=== PATIENT | male | born 1955 | race African-American/Black ===

== ENCOUNTER → 2021-12-14 09:50 | Outpatient (CLI) | payer MEDICARE, SELFPAY ==
--- NOTE | 2021-12-14 09:50 | US_ITS ---
FINAL REPORT CLINICAL HISTORY: Gallstones seen on CT FINDINGS: ULTRASOUND RIGHT UPPER QUADRANT Sonographic imaging of the right upper quadrant was obtained. The pancreas is partially obscured. There are multitude of hepatic cysts measuring up to 9.2 cm in greatest diameter. On the decubitus images the gallbladder is visualized and multiple gallstones are seen. The gallbladder lies adjacent to several of the hepatic cysts. There is no biliary ductal dilatation. The common duct is normal at 4 mm. Limited images of the right kidney demonstrates a 1.5 cm cyst. IMPRESSION: Multiple hepatic cysts. Multiple gallstones in the gallbladder. Right renal cyst. Reviewed, Interpreted and Dictated by Jai Plata MD Transcribed by Jovita Quintana Authenticated by Jai Plata MD on 12/14/2021 12:53:45 PM [facility]
== END ==
PROVIDERS: PCP Family Medicine; Visit Provider Surgery
DX: K80.20 Calculus of gallbladder without cholecystitis without obstruction (principal)
CPT/HCPCS: 76705

== ENCOUNTER → 2022-01-12 08:08 | Outpatient (CLI) | payer MEDICARE, SELFPAY ==
[2022-01-12 09:02] LABS: Basophils # 0.1 K/mm3 (0-0.2); Basophils % 1.8 % (0.1-2.0); Eosinophils # 0.4 K/mm3 (0.0-0.4); Eosinophils % 6.4 % (0.1-12.0); Hematocrit 45.1 % (42.0-52.0); Hemoglobin 14.9 g/dL (14.1-18.0); Lymphocytes # 2.1 K/mm3 (0.7-4.5); Mean Corpuscular HGB Conc 33.1 g/dL (31.8-35.4); Mean Corpuscular Hemoglobin 30.2 pg (27.0-31.2); Mean Corpuscular Volume 91.2 fl (80-94); Mean Platelet Volume 8.6 fl (7.4-10.4); Monocytes # 0.4 K/mm3 (0.1-1.0); Monocytes % 6.5 % (1.7-9.3); Neutrophils # 3.4 K/mm3 (1.8-7.8); Neutrophils % 52.5 % (37.0-80.0); Platelet Count 303 K/mm3 (142-424); Red Blood Count 4.95 M/mm3 (4.60-6.20); Red Cell Distribution Width 12.7 % (11.5-17.5); White Blood Count 6.4 K/mm3 (4.8-10.8)
[2022-01-12 09:59] LABS: Chloride 107 mmol/L (98-107)
[2022-01-12 10:00] LABS: Potassium 4.2 mmoL/L (3.5-5.1); Sodium 141 mmol/L (136-145)
[2022-01-12 10:02] LABS: Blood Urea Nitrogen 12 mg/dl (9-20); Estimated Glomerular Filt Rate 75 ml/min (>60); GFR (African American) 91 ML/MIN (>60)
[2022-01-12 10:03] LABS: Alanine Aminotransferase 32 U/L (12-78); Albumin/Globulin Ratio 1.4 (1.1-1.8); Alkaline Phosphatase 72 U/L (38-126); Anion Gap 10.2 mEq/L (5-15); Aspartate Amino Transferase 30 U/L (17-59); Bilirubin,Total 1.8 mg/dl (0.2-1.3); Calcium 8.9 mg/dl (8.4-10.2); Carbon Dioxide 28 mmol/L (22.0-30.0); Globulin 2.9 g/dL (1.3-3.2); Glucose 111 mg/dl (74-100); Total Protein,Serum 6.9 g/dl (6.3-8.2)
== END ==
PROVIDERS: Visit Provider Surgery
DX: Z01.818 Encounter for other preprocedural examination (principal); Z11.52 Encounter for screening for COVID-19; K80.80 Other cholelithiasis without obstruction
CPT/HCPCS: 36415; 80053; 85025; C9803; U0003; U0005

== ENCOUNTER 2022-01-15 06:02 | Day surgery (SDC) | payer MEDICARE, SELFPAY ==
[2022-01-11 09:48] VITALS: BMI 84.6
[2022-01-15] VITALS (12 sets, daily range): BP systolic 116–143; BP diastolic 65–79; PULSE 57–79; RESP 16–18; TEMP 36.1–43; O2SAT 92–99
--- NOTE | 2022-01-15 07:01 | HMH.HP ---
*Admission Date: 01/15/22 *Chief complaint: Gallstones *History of present illness: Patient is a very pleasant 66-year-old male who lives in [place] referred by Dr. Ji Templeton for gallstones. Patient is originally from [facility]. Patient had been having low back pain and had an MRI done which showed some abnormality in the right upper quadrant. This prompted a CT scan of the abdomen and pelvis done on 11/21/2021. This reveals multiple benign hepatic cysts, largest in the inferior hepatic lobe exerting somewhat of a mass-effect on the gallbladder, cholelithiasis, significant prostate enlargement. Initially was felt that the gallstones may be asymptomatic. However, the patient describes symptoms of GERD and indigestion for quite some time. He has taken antacids. He describes symptoms being worse with spicy foods. He has had some abdominal pain in the right upper quadrant occurring postprandially. Due to the symptoms he was sent for surgical consultation. I did have the patient undergo gallbladder ultrasound which reveals multiple hepatic cysts, multiple gallstones in the gallbladder, right renal cyst, normal common bile duct. I spent some time with the patient discussing the nature of his condition. It certainly sounds as though at least the degree of his symptomatology is secondary to his gallbladder. I offered him gallbladder surgery. Plan will be for laparoscopic with possibly open cholecystectomy. I explained to him the nature and details of the proposed procedure along with associated risks and expected outcome. He understands and agrees to proceed. [facility] History I have reviewed the patient's past medical history: Yes Medical History: Reports:: Gastroesophageal Reflux Disease(GERD), Hyperlipidemia Denies:: Cancer, Diabetes Mellitus Type 1, Diabetes Mellitus Type 2, Internal Pacemaker, MRSA, Seizures *Have you ever received a pneumonia vaccine?: No *Have you received a flu vaccine this season?: No Other Medical History: Reports: Other (diptheria at age 4, spinal menigitis age 18). Denies: Blood Transfusion Reaction Other Surgeries: Yes: Colonoscopy. No: Pacemaker Amputation: No Fractures: Yes - *Social History Last grade of school completed: Some college Smoking Status: Former smoker Alcohol Intake: current Alcohol Intake Frequency:: holidays/special occasions only *Occupational Status:: employed Housing: house *Travel in the last 8 weeks: Inside the [facility] Family Hx:: Non-contributory Review of Systems - Review of Systems Review of systems:: pertinent systems reviewed and negative unless documented below Meds Home Medications Medication Instructions Recorded Confirmed Type atorvastatin 20 mg tablet 20 mg PO DAILY 12/12/21 01/15/22 History lisinopril 10 1 tab PO DAILY 12/12/21 01/15/22 History mg-hydrochlorothiazide 12.5 mg tablet triamcinolone acetonide 0.5 % 1 applic TOPICAL DAILY 12/12/21 01/15/22 History topical cream Aspirin [Low Dose Aspirin EC] 81 mg PO DAILY 01/15/22 01/15/22 History Allergies Allergy/AdvReac Type Severity Reaction Status Date / Time No Known Allergies Allergy Verified 01/15/22 06:35 Exam Vital signs and Labs for Last 24 Hours: Temp Pulse Resp BP Pulse Ox 97.9 F 79 18 116/65 96 01/15/22 06:40 01/15/22 06:40 01/15/22 06:40 01/15/22 06:40 01/15/22 06:40 - Constitutional no acute distress - *Routine HEENT Exam Head: Present: normocephalic Eye: Present: EOMI, PERRL ENT: Present: mucous membranes moist - *Routine Neck Exam Present: supple. Absent: lymphadenopathy - *Routine Respiratory Exam Present: CTA bilaterally - *Routine Cardiovascular Exam Present: RRR - *Routine Abdominal Exam Present: soft, normoactive bowel sounds. Absent: tenderness - *Routine Rectal Exam Rectal:: deferred - *Routine Genitalia Exam Genitalia:: deferred - *Routine Extremities Exam Absent: cyanosis, clubbing, edema - *Routine Skin Ex
--- NOTE | 2022-01-15 07:04 | HMH.ANESCL ---
[facility] Anesthesia Checklist - Structural Data Admitted From: Home Planned Operative Procedure/s: felisha hernandeze Consent for Planned Operative Procedure(s) Verified: Yes - Additional verifications Anesthesia Reactions: No Hx Blood Transfusions: No Blood Transfusion Reaction: No - Airway Assessment C-Spine Mobility Assessed: Yes TMJ Mobility Assessed: Yes Dentition: Good Dentition - Neurological Assessment Level of Consciousness: Awake, Alert, Appropriate - Anesthesia Plan Anesthesia Risk discussed: Yes Anesthesia Plan: Verified ASA Class: II Anesthesia Type: General [facility] History I have reviewed the patient's past medical history: Yes Medical History: Reports:: Gastroesophageal Reflux Disease(GERD), Hyperlipidemia Denies:: Cancer, Diabetes Mellitus Type 1, Diabetes Mellitus Type 2, Internal Pacemaker, MRSA, Seizures *Have you ever received a pneumonia vaccine?: No *Have you received a flu vaccine this season?: No Other Medical History: Reports: Other (diptheria at age 4, spinal menigitis age 18). Denies: Blood Transfusion Reaction Anesthesia experience/problems:: none Other Surgeries: Yes: Colonoscopy. No: Pacemaker Amputation: No Fractures: Yes - *Social History Last grade of school completed: Some college Smoking Status: Former smoker Alcohol Intake: current Alcohol Intake Frequency:: holidays/special occasions only Substance Use Type: denies use *Occupational Status:: employed Housing: house *Travel in the last 8 weeks: Inside the [place] Family Hx:: No significant family history
--- NOTE | 2022-01-15 10:20 | HMH.OPNOTE ---
Date of procedure: 01/15/22 Pre-op Diagnosis:: Symptomatic gallstones Post-op Diagnosis:: Same with large hepatic cysts Procedure performed:: Laparoscopic cholecystectomy Laparoscopic hepatic cystectomy Surgeon:: Phu Patino MD HAND CLERICAL VERIFIER:: Kenny Eisenberg Anesthesia: [facility] Estimated blood loss (mL): 40 Clinical Note:: Patient is a very pleasant 66-year-old male who lives in [place] referred by Dr. Ji Templeton for gallstones. Patient is originally from [facility]. Patient had been having low back pain and had an MRI done which showed some abnormality in the right upper quadrant. This prompted a CT scan of the abdomen and pelvis done on 11/21/2021. This reveals multiple benign hepatic cysts, largest in the inferior hepatic lobe exerting somewhat of a mass-effect on the gallbladder, cholelithiasis, significant prostate enlargement. Initially was felt that the gallstones may be asymptomatic. However, the patient describes symptoms of GERD and indigestion for quite some time. He has taken antacids. He describes symptoms being worse with spicy foods. He has had some abdominal pain in the right upper quadrant occurring postprandially. Due to the symptoms he was sent for surgical consultation. I did have the patient undergo gallbladder ultrasound which reveals multiple hepatic cysts, multiple gallstones in the gallbladder, right renal cyst, normal common bile duct. I spent some time with the patient discussing the nature of his condition. It certainly sounds as though at least the degree of his symptomatology is secondary to his gallbladder. I offered him gallbladder surgery. Plan will be for laparoscopic with possibly open cholecystectomy. I explained to him the nature and details of the proposed procedure along with associated risks and expected outcome. He understands and agrees to proceed. Operative findings:: He had very large hepatic cyst on each side of the gallbladder. Cyst of the right of the gallbladder was very large and essentially obscuring the visualization of the gallbladder. Gallbladder was somewhat thickened. There was a stone impacted in the proximal cystic duct at the neck of the gallbladder. Operative note:: Consent was obtained and patient was taken to the operating room. He was given preoperative intravenous antibiotics. In the operating room he was placed in a supine position. General anesthesia was induced via endotracheal tube. Abdomen was prepped and draped in the standard surgical fashion. Subumbilical skin incision was made and while performing abdominal wall lift Veress needle was inserted. CO2 pneumoperitoneum was achieved to 15 mmHg. 11 mm optical trocar was inserted at the umbilicus. Intraperitoneal contents were visualized. He was positioned in reverse Trendelenburg left side down. A couple of 5 mm trochars were inserted in the right upper abdomen. 10 mm trocar was inserted in the epigastrium. It appeared initially that he had a very distended gallbladder. This was grasped retracted anteriorly. However this was proven to be a very large hepatic cyst. There was some unavoidable spillage of drainage from the hepatic cyst which appeared clear. This was suctioned free. There is also a very large cyst to the left of the gallbladder. The gallbladder was virtually obscured by the 2 large cysts. Ultimately the gallbladder was able to be grasped and retracted anteriorly. There were some adhesions of cyst wall and omentum to the gallbladder as well as to the cyst. This was taken down using blunt dissection. Infundibulum/Vásquez's pouch of the gallbladder was retracted anterolaterally. Blunt dissection was carried out the neck of the gallbladder ultimately identifying the cystic duct and cystic artery. There appeared to be a stone impacted in the proximal cystic duct near the neck of the gallbladder. Cystic duct was isolated. Cystic duct was multiply clipped and divided just distal from the stone
--- NOTE | 2022-01-15 10:24 | P.PN_ITS ---
[facility] Anesthesia Record Part I Intake, IV Amount: 1,500 Estimated blood loss (mL): 10 Urine output (mL): 0 Blood Pressure: 143/71 SaO2: 92 Pulse Rate: 75 Respiratory Rate: 16 Temperature: 97.3 F Patient is:: Drowsy, Stable Stable to PACU at:: 10:20
--- NOTE | 2022-01-15 10:35 | ECG_ITS ---
APPROVED REPORT Exam: Resting ECG HR:58 bpm ECG Measurements Heart Rate 58 AXES WY 140 P 55 QRSd 100 QRS 34 QT 446 T -37 QTc 442 Conclusion SINUS BRADYCARDIA MODERATE T-WAVE ABNORMALITY, CONSIDER ANTEROLATERAL ISCHEMIA [-0.1+ mV T-WAVE IN V3-V6] MODERATE T-WAVE ABNORMALITY, CONSIDER INFERIOR ISCHEMIA [-0.1+ mV T-WAVE IN II/aVF] ABNORMAL ECG UNCONFIRMED REPORT Electronically signed by : Wilfred Singh MD 01/15/2022 19:44:07
--- NOTE | 2022-01-15 13:06 | PC.NURSE ---
late entry: [id number] having irregularity noted on telemetry, multiple PVC's and occasional pauses with dropped complexes noted, notified POP Leon (telemetry strip noted on chart), pt denies chest pain or soa, pt reports his HR is normally in low 60's, POP Leon at bedside and ordered for pt to have EKG and continue to monitor, notified Respiratory Therapy of EKG order 1042-pt no longer having irregularity on telemetry, sinus rhythm with HR of low 60's noted, awaiting respiratory therapy to obtain ekg 1043-Respiratory therapy at bedside and obtained ekg, both POP Leon and Dr. Patino reviewed and made aware of EKG results, no further orders given at this time and pt okayed by both POP and MD to be discharged home and to follow up with primary care doctor, will continue to monitor 1053-detailed report called to RACHEL Diaz, pt continues to be sinus rhythm on telemetry,vss 1055-pt transported to post op via stretcher w/akshat rails up and left in care of RACHEL Diaz with bed locked in lowest position, pt c/o some nausea and soreness after transport, will notify MD for orders, vss, pt stable
--- NOTE | 2022-01-15 13:59 | P.PN_ITS ---
[facility] Anesthesia Record Part II Discharge Time: 10:50 Destination: Surgical Day Care (OP Surgery) PACU nurse assessment reviewed?: Yes Patient Condition:: Good Anesthesia Complications:: None Swallowing reflex intact?: Yes Cyanosis?: No Blood Pressure: 135/77 Pulse Rate: 61 Temperature: 97.6 F Mental Status: Alert & Oriented Pain level:: 2 Nausea and/or vomitting:: None Intake, IV Amount: 0 Comments:: Notified by RN of irregular HR in PACU. EKG obtained, but HR resolved before EKG obtained. Pt asymptomatic. No c/o dyspnea, chest pain, syncope, etc. Pt educated to follow up with Primary Care Physician with EKG results.
== END 2022-01-15 11:53 | disposition home or self-care (01) ==
LOC: OR 06:05
PROVIDERS: PCP Family Medicine; Visit Provider Surgery
PROC: 0FT44ZZ Resection of Gallbladder, Percutaneous Endoscopic Approach (ICD-10-PCS; CPT 47562; principal; 2022-01-15 07:30)
DX: K80.64 Calculus of gallbladder and bile duct with chronic cholecystitis without obstruction; K76.89 Other specified diseases of liver; Q61.01 Congenital single renal cyst; K66.0 Peritoneal adhesions (postprocedural) (postinfection)
CPT/HCPCS: 47562; 47715; 88304; 88305; 93005; 96374; J2405; J2710

== ENCOUNTER → 2023-03-26 10:46 | Outpatient (CLI) | payer MEDICARE, OTHER, SELFPAY ==
[2023-03-26 11:00] LABS: Microscopic, Urine URINE MICROSCOPIC (MICROSCOPIC)
[2023-03-26 12:04] LABS: Basophils # 0.1 K/mm3 (0-0.2); Basophils % 0.7 % (0.1-2.0); Eosinophils # 0.4 K/mm3 (0.0-0.4); Eosinophils % 6.1 % (0.1-12.0); Hematocrit 45.1 % (42.0-52.0); Hemoglobin 14.9 g/dL (14.1-18.0); Lymphocytes # 1.9 K/mm3 (0.7-4.5); Lymphocytes % 29.4 % (10-50); Mean Corpuscular HGB Conc 32.9 g/dL (31.8-35.4); Mean Corpuscular Hemoglobin 29.5 pg (27.0-31.2); Mean Corpuscular Volume 89.5 fl (80-94); Mean Platelet Volume 7.3 fl (7.4-10.4); Monocytes # 0.4 K/mm3 (0.1-1.0); Monocytes % 6.1 % (1.7-9.3); Neutrophils # 3.7 K/mm3 (1.8-7.8); Neutrophils % 57.6 % (37.0-80.0); Platelet Count 255 K/mm3 (142-424); Red Blood Count 5.04 M/mm3 (4.60-6.20); Red Cell Distribution Width 12.7 % (11.5-17.5); White Blood Count 6.5 K/mm3 (4.8-10.8)
[2023-03-26 12:16] LABS: Alanine Aminotransferase 39 U/L (12-78); Albumin Level 4.2 g/dl (3.5-5.0); Albumin/Globulin Ratio 1.4 (1.1-1.8); Alkaline Phosphatase 79 U/L (38-126); Amylase 113 U/L (30-110); Anion Gap 15.2 mEq/L (5-15); Aspartate Amino Transferase 33 U/L (17-59); Bilirubin,Total 1.7 mg/dl (0.2-1.3); Blood Urea Nitrogen 13 mg/dl (9-20); Calcium 8.9 mg/dl (8.4-10.2); Carbon Dioxide 27 mmol/L (22.0-30.0); Chloride 102 mmol/L (98-107); Estimated Glomerular Filt Rate 75 ml/min (>60); GFR (African American) 91 ML/MIN (>60); Globulin 3.1 g/dL (1.3-3.2); Glucose 122 mg/dl (74-100); Lipase 104 U/L (23-300); Potassium 4.2 mmoL/L (3.5-5.1); Sodium 140 mmol/L (136-145); Total Protein,Serum 7.3 g/dl (6.3-8.2)
[2023-03-26 12:18] LABS: Appearance,Urine CLEAR (Clear); Bilirubin,Urine Negative (Negative); Blood, Urine TRACE-I (Negative); Color,Urine YELLOW (Yellow); Glucose,Urine (UA) Negative (Negative); Ketones,Urine Negative (Negative); Leukocyte Esterase,Urine Negative (Negative); Nitrate,Urine Negative (Negative); PH,Urine 6.5 (5.0-8.5); Protein,Urine Negative (Negative)
[2023-03-26 12:31] LABS: Bacteria,Urine Trace /lpf; RBC,Urine Occasional #/hpf (0-3); Squamous Epithelial Cell,Urine Occasional #/hpf (0-5)
--- NOTE | 2023-03-26 12:46 | CT_ITS ---
FINAL REPORT TECHNIQUE: Oral and IV contrast enhanced exam CLINICAL HISTORY: left lower quad pain FINDINGS: Abdomen: Lung bases are clear. The gallbladder is surgically absent. There are numerous hepatic cyst, the largest measuring up to 9.7 cm. The spleen, pancreas and adrenal glands are unremarkable. There are nonobstructing bilateral renal stones. A few bilateral renal cysts are seen. No bowel obstruction or fluid collection is seen. Pelvis: The appendix is normal. Pelvic bowel loops are unremarkable. The urinary bladder is unremarkable. There is severe prostate enlargement with lobulation. No fluid collection or adenopathy is seen. There is a small right inguinal hernia containing fat. IMPRESSION: No bowel obstruction or inflammatory changes. Severe prostate enlargement. Nonobstructing bilateral renal stones. Reviewed, Interpreted and Dictated by Darcy Cavazos MD Transcribed by Kacie Lamb Authenticated and [facility]
== END ==
PROVIDERS: PCP Family Medicine; Visit Provider Surgery
DX: R10.32 Left lower quadrant pain (principal)
CPT/HCPCS: 36415; 74177; 80053; 81001; 82150; 82565; 83690; 84520; 85025; Q9967

== ENCOUNTER 2024-02-10 08:54 | Outpatient (CLI) | payer MEDICARE, OTHER, SELFPAY ==
--- NOTE | 2024-02-10 09:02 | XR_ITS ---
FINAL REPORT CLINICAL HISTORY: foot pain COMPARISON: None FINDINGS: 3 images of the right foot were obtained. There is no evidence of fracture or dislocation. The joint spaces are intact. There is no soft tissue abnormality identified. Note is made of a tiny plantar calcaneal spur. IMPRESSION: No acute bony abnormality. Tiny plantar calcaneal spur. Reviewed, Interpreted and Dictated by Jai Plata MD Transcribed by Keya Sprague Authenticated and [facility]
--- NOTE | 2024-02-10 09:02 | XR_ITS ---
FINAL REPORT CLINICAL HISTORY: foot pain COMPARISON: None FINDINGS: 3 images of the left foot were obtained. There is no evidence of fracture or dislocation. The joint spaces are intact. There is no soft tissue abnormality identified. Note is made of a small plantar calcaneal spur. IMPRESSION: No acute bony abnormality. Small plantar calcaneal spur. Reviewed, Interpreted and Dictated by Jai Plata MD Transcribed by Keya Sprague Authenticated and [facility]
== END 2024-02-10 23:59 | disposition home or self-care (01) ==
LOC: RAD 08:56
PROVIDERS: PCP Family Medicine; Visit Provider Podiatrist
DX: M79.671 Pain in right foot (principal); M79.672 Pain in left foot
CPT/HCPCS: 73630